=== PATIENT | female | born 1975 | race Caucasian/White ===

== ENCOUNTER → 2017-06-27 | Outpatient (CLI) | payer BC ==
--- NOTE | 2017-06-27 15:27 | RAD ---
PROCEDURE: CHEST PA LATERAL CLINICAL INDICATION: COUGH COMPARISON: None FINDINGS: No pneumothorax identified. Cardiac and mediastinal contours unremarkable. No pulmonary consolidation or acute airspace disease. No acute osseous abnormalities identified. IMPRESSION: No pulmonary consolidation or acute airspace disease.
== END | disposition home or self-care (01) ==
LOC: PMG 14:19
PROVIDERS: ATTEND Nurse Practitioner Family
DX: R05 Cough (principal)
CPT/HCPCS: 71046

== ENCOUNTER → 2020-04-22 | Outpatient (CLI) | payer OTHER, BC ==
--- NOTE | 2020-04-22 12:12 | RAD ---
EXAM: Abdomen and pelvis CT without intravenous contrast. HISTORY: Right flank pain. TECHNIQUE: Computed tomographic images of the abdomen and pelvis were obtained without contrast. Multiplanar reformatting was performed. *One or more of the following individualized dose reduction techniques were utilized for this examination: 1. Automated exposure control. 2. Adjustment of the mA and/or kV according to patient size. 3. Use of iterative reconstruction technique. COMPARISON: None. FINDINGS: Evaluation of the lower thorax is unremarkable. There is a 10 mm hypodense lesion within the left hepatic lobe, too small to characterize. The gallbladder, pancreas, spleen, adrenal glands and stomach are unremarkable. There is a 1 mm nonobstructing stone within the mid zone of the left kidney. There is no hydronephrosis. The urinary bladder is unremarkable. No solid or cystic renal lesion is seen. There is no appendicitis. There is no bowel obstruction. There are few colonic diverticula. There is no abnormal bowel wall thickening. The uterus is unremarkable. The adnexal regions are unremarkable. The aorta is normal in caliber. There is no lymphadenopathy. There is no suspicious osseous lesion. IMPRESSION: 1. Tiny nonenhancing left renal stone. 2. Few colonic diverticula. 3. 10 mm hypodense lesion within the liver. In the absence of known malignancy, this likely a cyst or hemangioma. This is likely too small to characterize sonographically. Electronically signed by: Tonia Varela MD (04/22/2020 12:09 PM) [id number]
== END ==
LOC: CT 11:42
PROVIDERS: ATTEND Family Medicine
DX: N20.0 Calculus of kidney (principal); K57.30 Diverticulosis of large intestine without perforation or abscess without bleeding; K76.9 Liver disease, unspecified
CPT/HCPCS: 74176